=== PATIENT | male | born 1940 ===

== ENCOUNTER 2021-06-11 10:06 | Inpatient (IN) | payer OTHER ==
[~2021-06-11] VITALS: Ht 188 cm; Wt 85.0 kg
[2021-06-11 11:16] LABS: Eosinophils # (auto) 0 10 ^3/uL (0-0.8); Hematocrit 31.1 % (41.0-53.0); Monocytes # (auto) 0.2 10 ^3/uL (0-1.3); Red Blood Cells 3.11 10^6/uL (4.5-5.90); Red Cell Distribution Width 14.7 % (11.8-14.3)
[2021-06-11 11:19] LABS: Basophils # (auto) 0 10 ^3/uL (0-0.2); Basophils % (auto) 0.3 % (0.0-2.0); Eosinophils % (auto) 0.2 % (0.0-7.0); Hemoglobin 10.8 g/dL (13.5-17.5); Mean Corpuscular Hemoglobin 34.7 pg (28.0-32.0); Mean Corpuscular Hgb Conc. 34.6 g/dL (32.0-36.0); Mean Corpuscular Volume 100.3 fL (80.0-100.0); Monocytes % (auto) 3.8 % (0.0-12.0); Neutrophils # (auto) 3.1 10 ^3/uL (1.6-8.6); Neutrophils % (auto) 71.7 % (37.0-80.0); Nucleated Red Blood Cells % 0.3 %; White Blood Cell 4.3 10^3/uL (4.4-10.8)
[2021-06-11 11:21] LABS: Albumin 3.1 g/dL (3.4-5.0); Calcium 8.9 mg/dL (8.5-10.1); Magnesium 2.8 mg/dL (1.6-2.6); Potassium 3.6 mmol/L (3.5-5.1)
[2021-06-11 11:29] LABS: BUN/Creatinine Ratio 24.8; Bilirubin, Total 0.8 mg/dL (0.2-1.0); Total Protein 10.6 g/dL (6.4-8.2)
[2021-06-11] MEDS ORDERED: SODIUM CHLORIDE 0.9% 1,000 ML IV ONE (13:45)
[2021-06-11] MEDS ORDERED: dilTIAZem 25 MG/5 ML VIAL IV ONE ×3 (13:59→15:33)
[2021-06-11] MEDS: dilTIAZem 125mg/125ml BAG KIT 100 ML IV SCH (15:42)
[2021-06-11] MEDS ORDERED: LOPERAMIDE HCL 2 MG CAP PO PRN (15:45)
[2021-06-11] MEDS ORDERED: NITROGLYCERIN 0.4 MG SL TAB SL PRN (16:30)
[2021-06-11] MEDS ORDERED: MORPHINE SULFATE INJECTION 2 MG/ML SYRG IV PRN (16:30)
[2021-06-11] MEDS: SODIUM CHLORIDE 0.9% 1,000 ML IV SCH (16:48)
[2021-06-11] MEDS ORDERED: LORazepam 2MG/ML-1ML VIAL ONE (17:57)
[2021-06-11] MEDS ORDERED: LORazepam 2MG/ML-1ML VIAL IV ONE (18:00)
[2021-06-11 18:48] LABS: Urine Bacteria FEW /hpf (None Seen); Urine Blood Negative /uL (Negative); Urine Mucus FEW (None Seen); Urine Specific Gravity 1.033 (1.001-1.035); Urine WBC 11 /hpf (0 - 3)
[2021-06-11] MEDS: LORazepam 2MG/ML-1ML VIAL IM ONE (21:51)
[2021-06-11] MEDS ORDERED: LORazepam 2MG/ML-1ML VIAL IV PRN (22:15)
[2021-06-11] MEDS: LORazepam 2MG/ML-1ML VIAL IV PRN (23:36)
[2021-06-12] MEDS: LORazepam 2MG/ML-1ML VIAL IV PRN (01:02)
[2021-06-12] MEDS: LORazepam 2MG/ML-1ML VIAL IM ONE (03:34)
[2021-06-12] MEDS ORDERED: LORazepam 2MG/ML-1ML VIAL IV PRN ×2 (03:45→05:00)
[2021-06-12 07:17] LABS: Calcium 8.9 mg/dL (8.5-10.1); Potassium 3.3 mmol/L (3.5-5.1)
[2021-06-12 07:23] LABS: Albumin 3.1 g/dL (3.4-5.0); BUN/Creatinine Ratio 27.2
[2021-06-12 07:33] LABS: Basophils # (auto) 0.2 10 ^3/uL (0-0.2); Basophils % (auto) 3.3 % (0.0-2.0); Bilirubin, Total 1.2 mg/dL (0.2-1.0); Eosinophils # (auto) 0 10 ^3/uL (0-0.8); Eosinophils % (auto) 0.5 % (0.0-7.0); Hemoglobin 10.5 g/dL (13.5-17.5); Lymphocytes % (auto) 20.7 % (10.0-50.0); Mean Corpuscular Hgb Conc. 33.8 g/dL (32.0-36.0); Mean Corpuscular Volume 100.4 fL (80.0-100.0); Monocytes # (auto) 0.2 10 ^3/uL (0-1.3); Monocytes % (auto) 3.7 % (0.0-12.0); Neutrophils # (auto) 3.4 10 ^3/uL (1.6-8.6); Neutrophils % (auto) 71.8 % (37.0-80.0); Nucleated Red Blood Cells % 0.5 %; Red Blood Cells 3.09 10^6/uL (4.5-5.90); Red Cell Distribution Width 15.1 % (11.8-14.3); Total Protein 10.4 g/dL (6.4-8.2); White Blood Cell 4.8 10^3/uL (4.4-10.8)
[2021-06-12] MEDS: dilTIAZem 125mg/125ml BAG KIT 100 ML IV SCH ×2 (08:30→18:50)
[2021-06-12] MEDS: ENOXAPARIN SOD 40 MG/0.4 ML SYRINGE SC SCH (10:12)
[2021-06-12] MEDS: SODIUM CHLORIDE 0.9% 1,000 ML IV SCH ×2 (10:45→20:00)
[2021-06-12] MEDS ORDERED: QUET50TA PO (11:04)
[2021-06-12] MEDS ORDERED: APIX5TAB PO (11:04)
[2021-06-12] MEDS ORDERED: FINA5TAB4 PO (11:04)
[2021-06-12] MEDS ORDERED: MET50T PO (11:04)
[2021-06-12] MEDS ORDERED: SERT25TA14 PO (11:04)
[2021-06-12] MEDS ORDERED: IOHEXOL 350 MG/ML 100ML IJ ONE (17:19)
[2021-06-12] MEDS ORDERED: DexAMETHasone SOD PHOS 10MG/1ML VIAL INJ IV ONE (18:45)
[2021-06-12] MEDS ORDERED: PROPOFOL 100 ML IV ONE (22:57)
[2021-06-12] MEDS ORDERED: ROCURONIUM 10MG/ML 10ML VIAL IV ONE ×2 (22:58→23:30)
[2021-06-12] MEDS ORDERED: ETOMIDATE (2MG/ML) 20ML VIAL IV ONE ×2 (22:58→23:30)
[2021-06-12 23:06] VITALS: BP 140/72
[2021-06-12] MEDS: MIDAZOLAM DRIP 50 mg/50mL 50 ML IV SCH ×2 (23:30→23:37)
[2021-06-12] MEDS ORDERED: MIDAZOLAM DRIP 50 mg/50mL 50 ML IV ONE (23:31)
[2021-06-13] VITALS (72 sets, daily range): BP systolic 90–135; BP diastolic 56–92
[2021-06-13] MEDS: SODIUM CHLORIDE 0.9% 1,000 ML IV SCH ×4 (02:05→18:30)
[2021-06-13] MEDS: MIDAZOLAM DRIP 50 mg/50mL 50 ML IV SCH ×3 (05:15→14:50)
[2021-06-13] MEDS ORDERED: PROPOFOL 100 ML IV SCH ×3 (05:30→06:00)
[2021-06-13] MEDS: PROPOFOL 100 ML IV SCH ×2 (05:45→14:49)
[2021-06-13] MEDS ORDERED: MIDAZOLAM HCL 2MG/2ML 2ml VIAL (1mg/ml) IV ONE (07:15)
[2021-06-13] MEDS: ENOXAPARIN SOD 40 MG/0.4 ML SYRINGE SC SCH (10:13)
[2021-06-13] MEDS ORDERED: AMIODARONE 450mg/250ml AE 250 ML IV SCH (10:30)
[2021-06-13] MEDS ORDERED: LABETALOL HCL 5 MG/ML 4ML SYRINGE IV ONE (10:30)
[2021-06-13] MEDS ORDERED: LABETALOL HCL 5 MG/ML ML 20ML VIAL IV ONE (10:33)
[2021-06-13] MEDS ORDERED: ACETAMINOPHEN 500 MG TAB PO PRN (16:00)
[2021-06-13] MEDS ORDERED: LABETALOL HCL 5 MG/ML 4ML SYRINGE IV PRN (16:00)
[2021-06-13] MEDS ORDERED: dilTIAZem 25 MG/5 ML VIAL IV ONE (21:54)
[2021-06-13] MEDS: PANTOPRAZOLE 40 MG/10 ML VIAL INJ IV SCH (23:00)
[2021-06-14] VITALS (86 sets, daily range): BP systolic 88–140; BP diastolic 52–77
[2021-06-14] MEDS: dilTIAZem 125mg/125ml BAG KIT 100 ML IV SCH ×2 (03:34→23:30)
[2021-06-14 06:59] LABS: Basophils # (auto) 0 10 ^3/uL (0-0.2); Eosinophils # (auto) 0 10 ^3/uL (0-0.8); Lymphocytes # (auto) 0.5 10 ^3/uL (0.4-5.4); Monocytes # (auto) 0.1 10 ^3/uL (0-1.3); Nucleated Red Blood Cells % 1.4 %; White Blood Cell 3.6 10^3/uL (4.4-10.8)
[2021-06-14 07:00] LABS: Basophils % (auto) 0.3 % (0.0-2.0); Eosinophils % (auto) 0.1 % (0.0-7.0); Hematocrit 23.6 % (41.0-53.0); Hemoglobin 8.2 g/dL (13.5-17.5); Lymphocytes % (auto) 13.1 % (10.0-50.0); Mean Corpuscular Hemoglobin 35.1 pg (28.0-32.0); Mean Corpuscular Hgb Conc. 34.6 g/dL (32.0-36.0); Mean Corpuscular Volume 101.4 fL (80.0-100.0); Monocytes % (auto) 3.1 % (0.0-12.0); Neutrophils % (auto) 83.4 % (37.0-80.0); Red Blood Cells 2.32 10^6/uL (4.5-5.90); Red Cell Distribution Width 15.3 % (11.8-14.3)
[2021-06-14 07:14] LABS: Albumin 2.3 g/dL (3.4-5.0); BUN/Creatinine Ratio 24.4; Calcium 8.1 mg/dL (8.5-10.1); Potassium 4.1 mmol/L (3.5-5.1)
[2021-06-14 07:17] LABS: Bilirubin, Total 1.1 mg/dL (0.2-1.0); Total Protein 8.5 g/dL (6.4-8.2)
[2021-06-14] MEDS: DexAMETHasone SOD PHOS 10MG/1ML VIAL INJ IV SCH (10:13)
[2021-06-14] MEDS: ENOXAPARIN SOD 40 MG/0.4 ML SYRINGE SC SCH (10:13)
[2021-06-14] MEDS: PANTOPRAZOLE 40 MG/10 ML VIAL INJ IV SCH ×2 (10:13→22:30)
[2021-06-14] MEDS: CHOLECALCIFEROL (VITD3) 2,000 UNIT CAP/TAB PO SCH (10:14)
[2021-06-14] MEDS: ZINC SULFATE 220mg CAP or TAB PO SCH (10:15)
[2021-06-14] MEDS: ASCORBIC ACID 1,000 MG TAB PO SCH (10:15)
[2021-06-14] MEDS: SODIUM CHLORIDE 0.9% 1,000 ML IV SCH (11:10)
[2021-06-14] MEDS ORDERED: DIGOXIN (250MCG/ML) 2 ML AMPULE IV ONE (14:00)
[2021-06-14] MEDS: PROPOFOL 100 ML IV SCH (15:33)
[2021-06-14] MEDS ORDERED: AMIODARONE HCL 150 MG in D5W 5% 100 ML IV ONE (18:00)
[2021-06-14] MEDS ORDERED: AMIODARONE 450mg/250ml AE 250 ML IV SCH (18:15)
[2021-06-14 19:00] LABS: Urine Bacteria FEW /hpf (None Seen); Urine Blood 3+ /uL (Negative); Urine Budding Yeast MANY /hpf (None Seen); Urine Hyaline Cast MANY /lpf (0 - 2); Urine Mucus FEW (None Seen); Urine Specific Gravity 1.028 (1.001-1.035); Urine WBC 92 /hpf (0 - 3)
[2021-06-14] MEDS: LABETALOL HCL 5 MG/ML 4ML SYRINGE IV PRN (19:30)
[2021-06-14] MEDS: MIDAZOLAM DRIP 50 mg/50mL 50 ML IV SCH (23:30)
[2021-06-15] VITALS (103 sets, daily range): BP systolic 102–143; BP diastolic 56–79
[2021-06-15] MEDS: SODIUM CHLORIDE 0.9% 1,000 ML IV SCH (03:50)
[2021-06-15 08:19] LABS: Basophils # (auto) 0 10 ^3/uL (0-0.2); Basophils % (auto) 0.3 % (0.0-2.0); Eosinophils # (auto) 0 10 ^3/uL (0-0.8); Hematocrit 23.1 % (41.0-53.0); Hemoglobin 7.8 g/dL (13.5-17.5); Lymphocytes # (auto) 0.4 10 ^3/uL (0.4-5.4); Lymphocytes % (auto) 9.9 % (10.0-50.0); Mean Corpuscular Hemoglobin 34.5 pg (28.0-32.0); Mean Corpuscular Hgb Conc. 33.9 g/dL (32.0-36.0); Mean Corpuscular Volume 101.8 fL (80.0-100.0); Monocytes # (auto) 0.1 10 ^3/uL (0-1.3); Monocytes % (auto) 2.6 % (0.0-12.0); Neutrophils # (auto) 3.6 10 ^3/uL (1.6-8.6); Neutrophils % (auto) 87.2 % (37.0-80.0); Nucleated Red Blood Cells % 1.9 %; Red Blood Cells 2.27 10^6/uL (4.5-5.90); Red Cell Distribution Width 15.1 % (11.8-14.3); White Blood Cell 4.1 10^3/uL (4.4-10.8)
[2021-06-15 08:35] LABS: BUN/Creatinine Ratio 34.6; Calcium 7.9 mg/dL (8.5-10.1); Potassium 3.9 mmol/L (3.5-5.1)
[2021-06-15] MEDS ORDERED: ENOXAPARIN SOD 30 MG/0.3 ML SYRINGE SC SCH (10:00)
[2021-06-15] MEDS: AMIODARONE 450mg/250ml AE 250 ML IV SCH ×2 (10:15→15:15)
[2021-06-15] MEDS: DexAMETHasone SOD PHOS 10MG/1ML VIAL INJ IV SCH (10:15)
[2021-06-15] MEDS: PANTOPRAZOLE 40 MG/10 ML VIAL INJ IV SCH ×2 (10:16→22:03)
[2021-06-15] MEDS: ZINC SULFATE 220mg CAP or TAB PO SCH (10:16)
[2021-06-15] MEDS: ASCORBIC ACID 1,000 MG TAB PO SCH (10:17)
[2021-06-15] MEDS: CHOLECALCIFEROL (VITD3) 2,000 UNIT CAP/TAB PO SCH (10:17)
[2021-06-15] MEDS ORDERED: FUROSEMIDE 40 MG/4 ML VIAL IV ONE (11:45)
[2021-06-15] MEDS: PROPOFOL 100 ML IV SCH ×2 (12:12→17:04)
[2021-06-15] MEDS: MIDAZOLAM DRIP 50 mg/50mL 50 ML IV SCH (17:04)
[2021-06-15] MEDS: dilTIAZem 125mg/125ml BAG KIT 100 ML IV SCH (19:30)
[2021-06-15] MEDS: SODIUM BICARBONATE 650 MG TAB GT SCH (22:03)
[2021-06-16] VITALS (103 sets, daily range): BP systolic 120–153; BP diastolic 63–94
[2021-06-16 06:39] LABS: Potassium 4.2 mmol/L (3.5-5.1)
[2021-06-16] MEDS: SODIUM CHLORIDE 0.9% 1,000 ML IV SCH ×2 (07:00→13:10)
[2021-06-16] MEDS: LABETALOL HCL 5 MG/ML 4ML SYRINGE IV PRN (07:19)
[2021-06-16] MEDS: CHOLECALCIFEROL (VITD3) 2,000 UNIT CAP/TAB PO SCH (09:24)
[2021-06-16] MEDS: ASCORBIC ACID 1,000 MG TAB PO SCH (09:24)
[2021-06-16] MEDS: PANTOPRAZOLE 40 MG/10 ML VIAL INJ IV SCH ×2 (09:24→21:56)
[2021-06-16] MEDS: DexAMETHasone SOD PHOS 10MG/1ML VIAL INJ IV SCH (09:24)
[2021-06-16] MEDS: ZINC SULFATE 220mg CAP or TAB PO SCH (09:24)
[2021-06-16] MEDS: SODIUM BICARBONATE 650 MG TAB GT SCH ×2 (09:24→21:56)
[2021-06-16] MEDS: ENOXAPARIN SOD 40 MG/0.4 ML SYRINGE SC SCH (09:25)
[2021-06-16] MEDS: PROPOFOL 100 ML IV SCH ×3 (09:26→21:55)
[2021-06-16] MEDS: AMIODARONE 450mg/250ml AE 250 ML IV SCH ×2 (14:14→21:15)
[2021-06-16] MEDS: MIDAZOLAM DRIP 50 mg/50mL 50 ML IV SCH (15:07)
[2021-06-16] MEDS: dilTIAZem 125mg/125ml BAG KIT 100 ML IV SCH (15:30)
[2021-06-17] VITALS (87 sets, daily range): BP systolic 120–173; BP diastolic 63–92
[2021-06-17] MEDS: PROPOFOL 100 ML IV SCH ×2 (02:52→20:45)
[2021-06-17] MEDS: SODIUM CHLORIDE 0.9% 1,000 ML IV SCH (02:53)
[2021-06-17] MEDS: SODIUM BICARBONATE 650 MG TAB GT SCH ×2 (09:30→20:44)
[2021-06-17] MEDS: PANTOPRAZOLE 40 MG/10 ML VIAL INJ IV SCH ×2 (09:31→20:44)
[2021-06-17] MEDS: ASCORBIC ACID 1,000 MG TAB PO SCH (09:31)
[2021-06-17] MEDS: DexAMETHasone SOD PHOS 10MG/1ML VIAL INJ IV SCH (09:31)
[2021-06-17] MEDS: ZINC SULFATE 220mg CAP or TAB PO SCH (09:31)
[2021-06-17] MEDS: CHOLECALCIFEROL (VITD3) 2,000 UNIT CAP/TAB PO SCH (09:31)
[2021-06-17] MEDS: ENOXAPARIN SOD 40 MG/0.4 ML SYRINGE SC SCH (09:32)
[2021-06-17 10:11] LABS: Basophils # (auto) 0 10 ^3/uL (0-0.2); Basophils % (auto) 0.1 % (0.0-2.0); Eosinophils # (auto) 0 10 ^3/uL (0-0.8); Eosinophils % (auto) 0.1 % (0.0-7.0); Hemoglobin 7.8 g/dL (13.5-17.5); Lymphocytes # (auto) 0.3 10 ^3/uL (0.4-5.4); Monocytes # (auto) 0.1 10 ^3/uL (0-1.3); Monocytes % (auto) 3.3 % (0.0-12.0); Neutrophils # (auto) 2.4 10 ^3/uL (1.6-8.6)
[2021-06-17 10:14] LABS: INR 1.07 (0.9-1.15); Partial Thromboplastin Time 21.9 sec (23.6-33.0)
[2021-06-17 10:18] LABS: Lymphocytes % (auto) 10.9 % (10.0-50.0); Mean Corpuscular Hemoglobin 34.5 pg (28.0-32.0); Mean Corpuscular Volume 101.5 fL (80.0-100.0); Neutrophils % (auto) 85.6 % (37.0-80.0); Red Blood Cells 2.26 10^6/uL (4.5-5.90); Red Cell Distribution Width 15.3 % (11.8-14.3); White Blood Cell 2.9 10^3/uL (4.4-10.8)
[2021-06-17 10:45] LABS: Potassium 4.4 mmol/L (3.5-5.1)
[2021-06-17] MEDS: dilTIAZem 125mg/125ml BAG KIT 100 ML IV SCH (11:30)
[2021-06-17] MEDS: AMIODARONE 450mg/250ml AE 250 ML IV SCH ×2 (12:15→20:45)
[2021-06-17 12:21] LABS: BUN/Creatinine Ratio 50.5; Bilirubin, Total 1.3 mg/dL (0.2-1.0); Calcium 8.2 mg/dL (8.5-10.1); Phosphorus 3.3 mg/dL (2.5-4.90); Total Protein 8.3 g/dL (6.4-8.2)
[2021-06-17] MEDS: LABETALOL HCL 5 MG/ML 4ML SYRINGE IV PRN (20:47)
[2021-06-18] VITALS (102 sets, daily range): BP systolic 77–173; BP diastolic 33–95
[2021-06-18] MEDS: PROPOFOL 100 ML IV SCH ×5 (00:39→21:51)
[2021-06-18] MEDS: MIDAZOLAM DRIP 50 mg/50mL 50 ML IV SCH ×4 (02:24→23:40)
[2021-06-18] MEDS: SODIUM CHLORIDE 0.9% 1,000 ML IV SCH ×3 (03:29→20:00)
[2021-06-18] MEDS: LABETALOL HCL 5 MG/ML 4ML SYRINGE IV PRN (03:30)
[2021-06-18 06:00] LABS: Albumin 1.9 g/dL (3.4-5.0); Calcium 7.8 mg/dL (8.5-10.1); Potassium 3.8 mmol/L (3.5-5.1)
[2021-06-18 06:02] LABS: BUN/Creatinine Ratio 41.8
[2021-06-18 06:04] LABS: Bilirubin, Total 1.9 mg/dL (0.2-1.0)
[2021-06-18 06:14] LABS: Hematocrit 25.7 % (41.0-53.0); Mean Corpuscular Hemoglobin 35.7 pg (28.0-32.0); Mean Corpuscular Hgb Conc. 34.9 g/dL (32.0-36.0); Mean Corpuscular Volume 102.3 fL (80.0-100.0); Red Blood Cells 2.51 10^6/uL (4.5-5.90)
[2021-06-18 07:05] LABS: White Blood Cell 1.2 10^3/uL (4.4-10.8)
[2021-06-18 07:06] LABS: Basophils % (manual) 0 (0.0-2.0); Blast Cells 0; Eosinophils % (manual) 0 (0-7); Promyelocytes % 0; Reactive Lymphocytes 0
[2021-06-18] MEDS: dilTIAZem 125mg/125ml BAG KIT 100 ML IV SCH (07:30)
[2021-06-18] MEDS ORDERED: AMIODARONE HCL 150 MG in D5W 5% 100 ML IV ONE (09:15)
[2021-06-18] MEDS ORDERED: DIGOXIN (250MCG/ML) 2 ML AMPULE IV ONE (09:15)
[2021-06-18] MEDS: DexAMETHasone SOD PHOS 10MG/1ML VIAL INJ IV SCH (09:30)
[2021-06-18] MEDS: ENOXAPARIN SOD 40 MG/0.4 ML SYRINGE SC SCH (09:30)
[2021-06-18] MEDS: SODIUM BICARBONATE 650 MG TAB GT SCH ×2 (09:30→21:44)
[2021-06-18] MEDS: PANTOPRAZOLE 40 MG/10 ML VIAL INJ IV SCH ×2 (09:30→21:44)
[2021-06-18] MEDS ORDERED: AMIODARONE 450mg/250ml AE 250 ML IV SCH (09:30)
[2021-06-18] MEDS: ASCORBIC ACID 1,000 MG TAB PO SCH (09:30)
[2021-06-18] MEDS: CHOLECALCIFEROL (VITD3) 2,000 UNIT CAP/TAB PO SCH (09:30)
[2021-06-18] MEDS: ZINC SULFATE 220mg CAP or TAB PO SCH (09:30)
[2021-06-18] MEDS ORDERED: ROCURONIUM 10MG/ML 10ML VIAL IV ONE ×2 (11:00→11:03)
[2021-06-18] MEDS: fentaNYL Drip 2500mCg/250mlNS 250 ML IV SCH (11:00)
[2021-06-18 14:36] LABS: Band Neutrophils % (manual) 15; Lymphocytes % (manual) 10 (10.0-50.0); Metamyelocytes % 2; Monocytes % (manual) 5 (0-12); Myelocytes % 1
[2021-06-18] MEDS: AMIODARONE 450mg/250ml AE 250 ML IV SCH ×2 (15:36→20:00)
[2021-06-18] MEDS: NOREPINEPHRINE 8 MG/250ML KIT 250 ML IV SCH (15:45)
[2021-06-19] VITALS (103 sets, daily range): BP systolic 96–122; BP diastolic 49–69
[2021-06-19] MEDS: dilTIAZem 125mg/125ml BAG KIT 100 ML IV SCH ×2 (03:30→23:30)
[2021-06-19 04:29] LABS: Basophils # (auto) 0 10 ^3/uL (0-0.2); Eosinophils # (auto) 0 10 ^3/uL (0-0.8); Eosinophils % (auto) 0.1 % (0.0-7.0); Lymphocytes # (auto) 0.2 10 ^3/uL (0.4-5.4); Mean Corpuscular Hemoglobin 35.2 pg (28.0-32.0); Monocytes # (auto) 0 10 ^3/uL (0-1.3)
[2021-06-19 04:36] LABS: Hematocrit 26.2 % (41.0-53.0); Hemoglobin 8.9 g/dL (13.5-17.5); Lymphocytes % (auto) 5.4 % (10.0-50.0); Mean Corpuscular Volume 103.6 fL (80.0-100.0); Monocytes % (auto) 0.8 % (0.0-12.0); Neutrophils # (auto) 4.2 10 ^3/uL (1.6-8.6); Neutrophils % (auto) 93.7 % (37.0-80.0); Nucleated Red Blood Cells % 1.6 %; Red Blood Cells 2.53 10^6/uL (4.5-5.90); White Blood Cell 4.5 10^3/uL (4.4-10.8)
[2021-06-19 04:46] LABS: BUN/Creatinine Ratio 42.1; Calcium 7.6 mg/dL (8.5-10.1); Potassium 5.5 mmol/L (3.5-5.1)
[2021-06-19] MEDS: PROPOFOL 100 ML IV SCH ×5 (05:55→22:40)
[2021-06-19] MEDS: MIDAZOLAM DRIP 50 mg/50mL 50 ML IV SCH ×3 (05:56→23:37)
[2021-06-19] MEDS: AMIODARONE 450mg/250ml AE 250 ML IV SCH (09:45)
[2021-06-19] MEDS: PANTOPRAZOLE 40 MG/10 ML VIAL INJ IV SCH ×2 (09:46→22:39)
[2021-06-19] MEDS: DexAMETHasone SOD PHOS 10MG/1ML VIAL INJ IV SCH (09:46)
[2021-06-19] MEDS: CHOLECALCIFEROL (VITD3) 2,000 UNIT CAP/TAB PO SCH (09:47)
[2021-06-19] MEDS: ZINC SULFATE 220mg CAP or TAB PO SCH (09:47)
[2021-06-19] MEDS: ENOXAPARIN SOD 40 MG/0.4 ML SYRINGE SC SCH (09:47)
[2021-06-19] MEDS: ASCORBIC ACID 1,000 MG TAB PO SCH (09:47)
[2021-06-19] MEDS: SODIUM BICARBONATE 650 MG TAB GT SCH ×2 (09:47→22:39)
[2021-06-19] MEDS: fentaNYL Drip 2500mCg/250mlNS 250 ML IV SCH (11:00)
[2021-06-19] MEDS ORDERED: FUROSEMIDE 20 MG/2 ML VIAL IV ONE (12:30)
[2021-06-19] MEDS: NOREPINEPHRINE 8 MG/250ML KIT 250 ML IV SCH ×2 (15:45→18:57)
[2021-06-20] VITALS (95 sets, daily range): BP systolic 110–130; BP diastolic 51–78
[2021-06-20] LABS: Protein, Urine 39.6 mg/dL (0.0-11.9)
[2021-06-20] MEDS: AMIODARONE 450mg/250ml AE 250 ML IV SCH ×2 (02:42→17:19)
[2021-06-20] MEDS: SODIUM CHLORIDE 0.9% 1,000 ML IV SCH ×2 (02:42→17:19)
[2021-06-20] MEDS: PROPOFOL 100 ML IV SCH ×3 (06:30→17:19)
[2021-06-20] MEDS: MIDAZOLAM DRIP 50 mg/50mL 50 ML IV SCH ×2 (06:30→18:12)
[2021-06-20 06:32] LABS: BUN/Creatinine Ratio 54.9; Calcium 7.9 mg/dL (8.5-10.1); Potassium 5.2 mmol/L (3.5-5.1)
[2021-06-20 07:06] LABS: Immunoglobulin G, Serum 4314 mg/dL (603-1613)
[2021-06-20] MEDS: ZINC SULFATE 220mg CAP or TAB PO SCH (08:38)
[2021-06-20] MEDS: CHOLECALCIFEROL (VITD3) 2,000 UNIT CAP/TAB PO SCH (08:38)
[2021-06-20] MEDS: SODIUM BICARBONATE 650 MG TAB GT SCH ×2 (08:38→22:41)
[2021-06-20] MEDS: ASCORBIC ACID 1,000 MG TAB PO SCH (08:39)
[2021-06-20] MEDS: ENOXAPARIN SOD 40 MG/0.4 ML SYRINGE SC SCH (08:40)
[2021-06-20] MEDS: DexAMETHasone SOD PHOS 10MG/1ML VIAL INJ IV SCH (08:40)
[2021-06-20] MEDS: PANTOPRAZOLE 40 MG/10 ML VIAL INJ IV SCH ×2 (08:40→22:41)
[2021-06-20] MEDS: fentaNYL Drip 2500mCg/250mlNS 250 ML IV SCH (11:00)
[2021-06-20] MEDS ORDERED: Vital AF 1.2 Cal 1 liter bottle GT SCH (14:00)
[2021-06-20] MEDS ORDERED: FUROSEMIDE 20 MG/2 ML VIAL IV ONE (16:15)
[2021-06-20] MEDS: dilTIAZem 125mg/125ml BAG KIT 100 ML IV SCH (22:40)
[2021-06-21] VITALS (51 sets, daily range): BP systolic 45–156; BP diastolic 19–79
[2021-06-21 04:59] LABS: Hematocrit 30.9 % (41.0-53.0); Hemoglobin 10.7 g/dL (13.5-17.5); Mean Corpuscular Hemoglobin 35.5 pg (28.0-32.0); Mean Corpuscular Hgb Conc. 34.6 g/dL (32.0-36.0); Mean Corpuscular Volume 102.4 fL (80.0-100.0); Red Blood Cells 3.02 10^6/uL (4.5-5.90); Red Cell Distribution Width 15.2 % (11.8-14.3)
[2021-06-21 05:16] LABS: BUN/Creatinine Ratio 56.2; Calcium 8.1 mg/dL (8.5-10.1); Potassium 5.4 mmol/L (3.5-5.1)
[2021-06-21 05:28] LABS: White Blood Cell 1.3 10^3/uL (4.4-10.8)
[2021-06-21 05:29] LABS: Basophils % (manual) 0 (0.0-2.0); Eosinophils % (manual) 0 (0-7); Promyelocytes % 0; Reactive Lymphocytes 0
[2021-06-21 07:01] LABS: Band Neutrophils % (manual) 30; Blast Cells 7; Lymphocytes % (manual) 12 (10.0-50.0); Metamyelocytes % 7; Monocytes % (manual) 8 (0-12); Myelocytes % 11
[2021-06-21] MEDS: SODIUM CHLORIDE 0.9% 1,000 ML IV SCH (09:50)
[2021-06-21] MEDS: CHOLECALCIFEROL (VITD3) 2,000 UNIT CAP/TAB PO SCH (10:00)
[2021-06-21] MEDS: ZINC SULFATE 220mg CAP or TAB PO SCH (10:00)
[2021-06-21] MEDS: ASCORBIC ACID 1,000 MG TAB PO SCH (10:00)
[2021-06-21] MEDS: SODIUM BICARBONATE 650 MG TAB GT SCH (10:00)
[2021-06-21] MEDS ORDERED: Pro-Stat SF 30ml Vanilla GT SCH (10:00)
[2021-06-21] MEDS: DexAMETHasone SOD PHOS 10MG/1ML VIAL INJ IV SCH (10:00)
[2021-06-21] MEDS: PANTOPRAZOLE 40 MG/10 ML VIAL INJ IV SCH (10:00)
[2021-06-21] MEDS ORDERED: PHENYLEPHRINE IV 250 ML IV SCH (10:15)
[2021-06-21] MEDS: fentaNYL Drip 2500mCg/250mlNS 250 ML IV SCH (11:00)
[2021-06-21] MEDS ORDERED: SODIUM BICARBONATE 50ML VIAL 50 ML in SOD CHL 0.45% 1,000 ML IV SCH (11:30)
[2021-06-21 13:43] LABS: Folate (Folic Acid) 16.5 ng/mL (5.38-24)
[2021-06-21] MEDS ORDERED: VASOPRESSIN 50 UNITS in D5W 5% 247.5 ML IV SCH (14:30)
[2021-06-21] MEDS: dilTIAZem 125mg/125ml BAG KIT 100 ML IV SCH (15:30)
== END 2021-06-21 14:59 | DRG 207 ==
LOC: ER 10:06 → EDBD 10:06 → TELE 16:22 → DOU IN ICU 06-13 06:45
PROVIDERS: ADMIT Internal Medicine; ATTEND Internal Medicine
PROC: 5A1955Z Respiratory Ventilation, Greater than 96 Consecutive Hours (ICD-10-PCS; principal; 2021-06-12)
PROC: 0BH17EZ Insertion of Endotracheal Airway into Trachea, Via Natural or Artificial Opening (ICD-10-PCS; 2021-06-12)
PROC: 06HM33Z Insertion of Infusion Device into Right Femoral Vein, Percutaneous Approach (ICD-10-PCS; 2021-06-13)
PROC: 0W9930Z Drainage of Right Pleural Cavity with Drainage Device, Percutaneous Approach (ICD-10-PCS; 2021-06-13)
PROC: 0W9930Z Drainage of Right Pleural Cavity with Drainage Device, Percutaneous Approach (ICD-10-PCS; 2021-06-14)
DX: U07.1 COVID-19 (principal); J96.01 Acute respiratory failure with hypoxia; J12.82 Pneumonia due to coronavirus disease 2019; N17.0 Acute kidney failure with tubular necrosis; N39.0 Urinary tract infection, site not specified; I48.20 Chronic atrial fibrillation, unspecified; J93.9 Pneumothorax, unspecified; J98.11 Atelectasis; M48.54XA Collapsed vertebra, not elsewhere classified, thoracic region, initial encounter for fracture; F41.9 Anxiety disorder, unspecified; N18.9 Chronic kidney disease, unspecified; E86.0 Dehydration; D47.2 Monoclonal gammopathy; D53.9 Nutritional anemia, unspecified; D69.6 Thrombocytopenia, unspecified; E87.5 Hyperkalemia; D72.819 Decreased white blood cell count, unspecified; H91.90 Unspecified hearing loss, unspecified ear; I95.9 Hypotension, unspecified; F09 Unspecified mental disorder due to known physiological condition; I12.9 Hypertensive chronic kidney disease with stage 1 through stage 4 chronic kidney disease, or unspecified chronic kidney disease; I25.2 Old myocardial infarction; Z51.5 Encounter for palliative care; Z88.0 Allergy status to penicillin
CPT/HCPCS: 36415; 36600; 70450; 71045; 71046; 71275; 80048; 80053; 81001; 82232; 82550; 82607; 82746; 82784; 82805; 83615; 83735; 83883; 84100; 84132; 84156; 84484; 85007; 85025; 85027; 85610; 85730; 86334; 86335; 87040; 87070; 87081; 87205; 87426; 87493; 93005; 93306; 94002; 94003; 95819; 96365; 96366; 96372; 96375; 96376; 99291; C9113; G0378; J1100; J2250; J2704; J7060